=== PATIENT | female | born 1995 ===

== ENCOUNTER 2018-05-10 15:30 | Emergency (ER) | payer MEDICAID ==
[2018-05-10 15:43] VITALS: BP 119/56; PULSE 64; RESP 16; TEMP 98.6; O2SAT 98
[2018-05-10] MEDS ORDERED: PROPARACAINE/FLUORESCEIN SOD 100 DROP/5 ML BOTTLE OU STA (16:09)
[2018-05-10] MEDS ORDERED: Fluorescein 1 mg Ophthalmic Strip ONE (16:15)
--- NOTE | 2018-05-10 16:15 | ED PDOC ---
HPI: Eye Injury/Pain Time Seen by Provider: 05/10/18 16:00 Chief Complaint (Nursing): Eye Problem Chief Complaint (Provider): Eye Problem History Per: Patient History/Exam Limitations: no limitations Onset/Duration Of Symptoms: Hrs Current Symptoms Are (Timing): Still Present Additional Complaint(s): Patient is a 23 y/o female with no significant PMHx who presents to the ED for evaluation of bilateral eye pain, onset this morning. Patient admits to blurry vision, watery discharge, itchiness, swelling, and redness. Of note, patient is wearing contacts. PCP: Dr. Alex Delgado Past Medical History Reviewed: Historical Data, Nursing Documentation, Vital Signs Vital Signs: Last Vital Signs Temp 98.6 F 05/10/18 15:41 Pulse 64 05/10/18 15:41 Resp 16 05/10/18 15:41 BP 119/56 L 05/10/18 15:41 Pulse Ox 98 05/10/18 15:41 - Medical History PMH: No Chronic Diseases - Surgical History Surgical History: No Surg Hx - Family History Family History: States: No Known Family Hx - Home Medications Home Medications: Ambulatory Orders Medication Instructions Recorded Ciprofloxacin 0.3% [Ciloxan 0.3% 1 drop BOTHEYES QID #1 bottle 05/10/18 Ophth CHELLE] - Allergies Allergies/Adverse Reactions: Allergies Allergy/AdvReac Type Severity Reaction Status Date / Time No Known Allergies Allergy Verified 05/10/18 15:40 Review of Systems ROS Statement: Except As Marked, All Systems Reviewed And Found Negative Eyes: Positive for: Pain (and blurriness), Conjunctivae Inflammation (swelling), Redness (and itchiness), Other (watery discharge). Negative for: Vision Change (and fluorescein uptake) Physical Exam - Reviewed Nursing Documentation Reviewed: Yes Vital Signs Reviewed: Yes (with contacts: right eye (20/25), left eye (20/25), together (20/15)) - Physical Exam Appears: Positive for: No Acute Distress Head Exam: Positive for: ATRAUMATIC, NORMAL INSPECTION, NORMOCEPHALIC Skin: Positive for: Normal Color, Warm, Dry Eye Exam: Positive for: EOMI, PERRL, Conjunctival injection, Other (No f luorescein uptake noted.). Negative for: Periorbital swelling, Periorbital tenderness Neck: Positive for: Normal, Painless ROM, Supple Extremity: Positive for: Normal ROM. Negative for: Pedal Edema, Deformity Neurologic/Psych: Positive for: Alert, Oriented. Negative for: Motor/Sensory Deficits - ECG O2 Sat by Pulse Oximetry: 98 (RA) Pulse Ox Interpretation: Normal Medical Decision Making Medical Decision Making: Time: 1608 Impression: Conjunctivitis Plan: Flucaine Eye Drops 1 Drop OU Scribe Attestation: Documented by Ervin Gallego, acting as a scribe for LAURENT Ramsey. Provider Scribe Attestation: All medical record entries made by the Scribe were at my direction and personally dictated by me. I have reviewed the chart and agree that the record accurately reflects my personal performance of the history, physical exam, medical decision making, and the department course for this patient. I have also personally directed, reviewed, and agree with the discharge instructions and disposition. Disposition - Clinical Impression Clinical Impression: Conjunctivitis - Patient ED Disposition Is Patient to be Admitted: No - Disposition Referrals: Hollis Lam MD [Staff Provider] - Disposition: Routine/Home Disposition Time: 16:54 Condition: FAIR Prescriptions: Ciprofloxacin 0.3% [Ciloxan 0.3% Ophth SOLN] 1 drop BOTHEYES QID #1 bottle Instructions: Conjunctivitis ([place]) (DC) Forms: [facility] ED School/Work Excuse
== END 2018-05-10 17:10 | disposition home or self-care (01) ==
LOC: H.ER 15:30
DX: H10.9 Unspecified conjunctivitis (principal)